=== PATIENT | male | born 1965 | race Caucasian/White ===

== ENCOUNTER 2021-03-11 21:41 | Emergency (ER) | payer OTHER ==
[~2021-03-11 21:41] MED LIST: ASPI-889 PO; FEXO60TA25 PO; NIAC10002 PO; OMEG500C PO; TRAV5DRO OP
== END 2021-03-11 22:15 | disposition left against medical advice (07) ==
LOC: ER 21:41
DX: M54.5 Low back pain (principal); Z53.21 Procedure and treatment not carried out due to patient leaving prior to being seen by health care provider